=== PATIENT | female | born 1930 | race Caucasian/White ===

== ENCOUNTER 2016-12-20 10:18 | Emergency (ER) | payer MEDICARE, MEDICAID ==
[2016-12-20 11:08] LABS: Hematocrit 32.5 % (37.0-47.0); Hemoglobin 10.6 gm/dL (12.5-16.0); Mean Cell Volume 94.8 fl (78-100); Mean Corpuscular Hemoglobin 30.9 pg (27-31); Mean Corpuscular Hgb Conc 32.6 g/dl (32-36); Mean Platelet Volume 8.8 fl (6.0-9.5); Platelet Count 187 K/mm3 (150-450); Red Blood Count 3.43 M/mm3 (4.2-5.4); Red Cell Distribution Width 13.7 % (11.5-14.0); White Blood Count 7.3 K/mm3 (4.0-10.5)
[2016-12-20 11:13] LABS: Total Cells Counted 100
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
[2016-12-20 11:21] LABS: Prothrombin Time (Patient) 40.7 Seconds (9.4-11.4)
[2016-12-20 11:24] LABS: INR 3.91 INR (0.90-1.10); Partial Thrombolplastin Time 42.1 Seconds (24-32)
--- OUTSIDE RECORDS SUMMARY | 2016-12-20 11:25 | XMS REPORT | Continuity of Care Document ---
:1930 Author Organization [facility] [place] [address] Care Team Providers Name Role Phone Reddy Cervantes Primary Care Provider [phone] Source Comments This disclosure is being made pursuant to the [employer] program and maynot contain all information available regarding this patient.[facility] Active Allergies and Adverse Reactions Allergen Noted Date Severity Reactions Comments Solitario Inhibitors 04/17/2016 Cough Carvedilol 04/17/2016 Unknown Codeine 04/17/2016 High Respiratory Distress Lipitor 04/17/2016 High Swelling Penicillins 04/17/2016 High Hives Sulfa Antibiotics 04/17/2016 High Hives Vytorin 04/17/2016 Unknown Current Medications Be aware that medications may not be up to date as of this document. Alwaysverify current medications with the patient. Prescription Sig. Disp. Refills Start Date End Date Status aspirin 81 MG EC tablet Take 81 mg by Active mouth daily. torsemide (DEMADEX) 20 Take 20 mg by Active MG tablet mouth daily. omeprazole (PRILOSEC) 20 Take 20 mg by Active MG capsule mouth every morning before breakfast. potassium chloride SA Take 10 mEq by Active (K-DUR,KLOR-CON) 20 MEQ mouth daily. tablet donepezil (ARICEPT) 5 MG Take 5 mg by Active tablet mouth nightly. travoprost, Place 1 drop Active benzalkonium, (TRAVATAN into both eyes Z) 0.004 % ophthalmic nightly. solution vitamin B-12 Take 100 mcg by Active (CYANOCOBALAMIN) 100 MCG mouth daily. tablet warfarin (COUMADIN) 3 MG Take 3 mg by Active tablet mouth daily. alendronate (FOSAMAX) 70 Take 70 mg by Active MG tablet mouth every 7 days. cyclobenzaprine Take 1 tablet by 0 03/31/2016 Active (FLEXERIL) 10 MG tablet mouth 3 (three) times daily as needed. LORazepam (ATIVAN) 0.5 Take 1 tablet by 0 03/01/2016 Active MG tablet mouth daily. traMADol (ULTRAM) 50 MG Take 0.5-1 20 tablet 0 04/17/2016 Active tablet tablets by mouth every 8 (eight) hours as needed for Pain (For severe pain). calcitonin, salmon, 1 spray by Nasal 2 mL 3 04/24/2016 Active (MIACALCIN) 200 UNIT/ACT route daily. nasal spray [place] into only one nostril daily. lidocaine-prilocaine Apply up to 2 60 g 5 04/25/2016 Active (EMLA) cream affected areas twice daily prn Active Problems Problem Noted Date Closed wedge compression fracture of twelfth thoracic vertebra (HCC) 2015 Closed wedge compression fracture of seventh thoracic vertebra (HCC) 2015 Osteoporosis 04/24/2016 Closed stable burst fracture of sixth thoracic vertebra ([facility]) 04/24/2016 Closed stable burst fracture of twelfth thoracic vertebra ([facility]) 04/24/2016 Social History Tobacco Use Types Packs/Day Years Used Date Never Smoker Smokeless Tobacco: Never Used Alcohol Use Drinks/Week oz/Week Comments No Last Filed Vital Signs Vital Sign Reading Time Taken Blood Pressure 136/80 05/06/2016 9:57 AM CDT Pulse 60 04/24/2016 10:05 AM CDT Temperature 35.8 C (96.4 F) 04/24/2016 10:05 AM CDT Respiratory Rate 16 04/24/2016 10:05 AM CDT Height 1.524 m (5') 05/06/2016 9:57 AM CDT Weight 45.36 kg (100 lb) 05/06/2016 9:57 AM CDT Body Mass Index 19.53 05/06/2016 9:57 AM CDT Oxygen Saturation - - Plan of Care Health Maintenance Due Date Last Done Comments Tetanus/Pertussis (1 - Tdap) 1948 Well Adult Visit 1979 Zoster Vaccine 60+ 1989 Bone Density 1994 Pneumococcal Low/Medium Risk 65+ (1 of 2 - PCV13) 1994 Influenza Immunization (#1) 2016 Results from Last 3 Months Not on file
[2016-12-20 11:30] LABS: Eosinophil 3 % (0-3); Lymphocyte 6 % (20-51); Monocyte 1 % (0-9); Neutrophil 90 % (42-75); Neutrophil # 6.6 K/mm3 (1.3-6.0); Platelet Estimate Normal (NORMAL); RBC Morphology Normal (NORMAL)
[2016-12-20 11:41] LABS: Albumin * 3.7 gm/dl (3.4-5.0); Anion Gap 15.5 mmol/L (6.8-13.8); BUN/Creatinine Ratio 19.3 (9.0-21.6); Bilirubin, Total 1.3 mg/dL (0.0-1.1); Ca. Corrected For Albumin 8.7 mg/dL (8.4-10.2); Calcium * 8.8 mg/dL (7.9-10.9); Carbon Dioxide 26.8 mmol/L (24-32.6); Potassium 4.3 mmol/L (3.4-4.6); Total Protein 7.2 gm/dL (6.2-8.2); Troponin I 0.077 ng/ml (0.00-0.10)
[2016-12-20 12:30] LABS: Urine Bilirubin Negative (NEGATIVE); Urine Blood Negative /ul (NEGATIVE); Urine Ketone Negative (NEGATIVE); Urine Nitrite Negative (NEGATIVE); Urine Protein Negative (NEGATIVE); Urine Specific Gravity 1.025 SP.GR. (1.005-1.010); Urine Urobilinogen Normal (NORMAL); Urine pH 5.5 pH (5.0-7.0)
[2016-12-20 12:47] LABS: Urine Appearance Slightly Cloudy; Urine Bacteria 1+; Urine Color Yellow; Urine RBC None Seen /hpf (0-5); Urine WBC TRACE /hpf (0-5)
[2016-12-20] MEDS ORDERED: ACETAMINOPHEN 325 MG TABLET ONE (13:21)
[2016-12-20] MEDS ORDERED: ACETAMINOPHEN 325 MG TABLET PO ONE (13:21)
[2016-12-20 13:27] VITALS: BP 127/77
== END 2016-12-20 13:40 | disposition home or self-care (01) ==
LOC: ER 10:18
PROC: 0T9B7ZZ Drainage of Bladder, Via Natural or Artificial Opening (ICD-10-PCS; principal; 2016-12-20)
DX: D68.59 Other primary thrombophilia (principal); S22.41XA Multiple fractures of ribs, right side, initial encounter for closed fracture; W01.198A Fall on same level from slipping, tripping and stumbling with subsequent striking against other object, initial encounter; Z79.01 Long term (current) use of anticoagulants; I50.9 Heart failure, unspecified; Z86.718 Personal history of other venous thrombosis and embolism; H40.9 Unspecified glaucoma; I10 Essential (primary) hypertension

== ENCOUNTER 2017-08-10 11:05 | Emergency (ER) | payer MEDICARE, MEDICAID ==
--- NOTE | 2017-08-10 11:47 | ERNOTE ---
Back Pain ER HPI Presenting Symptoms: other - patient complains of lower thoracic pain along the ribs a wrap around to the front Time Seen by Provider: 08/10/17 11:30 Source: patient, family Exam Limitations: no limitations - other than profound hearing disability, hard of hearing Immunizations: IMMUNIZATION HX Immunizations Up to Date Yes History of Influenza Vaccine Yes Hx Pneumococcal Vaccination Yes Allergies/Adverse Reactions: Allergies BRENDA Inhibitors Allergy (Verified 12/20/16 10:42) atorvastatin calcium [From Lipitor] Allergy (Verified 12/20/16 10:42) carvedilol Allergy (Verified 12/20/16 10:42) ezetimibe [From Vytorin] Allergy (Verified 12/20/16 10:42) simvastatin [From Vytorin] Allergy (Verified 12/20/16 10:42) Sulfa (Sulfonamide Antibiotics) Allergy (Verified 12/20/16 10:42) hydrocodone Adverse Reaction (Verified 12/20/16 10:42) Home Medications: HOME MEDICATIONS Alendronate Sodium [Fosamax] 70 mg PO Q7D 06/10/14 [Last Taken 06/09/14] Donepezil HCl [Aricept] 5 mg PO DAILY 06/10/14 [Last Taken 06/09/14] Torsemide [Demadex] 100 mg PO DAILY 06/10/14 [Last Taken 06/09/14] Travoprost [Travatan Z] 2.5 ml OP DAILY 06/10/14 [Last Taken 06/09/14] LORazepam [Ativan] 0.5 mg PO DAILY PRN 03/28/16 [Last Taken Unknown] Omeprazole [Prilosec] 20 mg PO DAILY 03/28/16 [Last Taken Unknown] Potassium Chloride [Klor-Con M10] 10 meq PO DAILY 03/28/16 [Last Taken Unknown] Cyanocobalamin (Vitamin B-12) [Vitamin B12] 1,000 mcg IM DAILY 12/20/16 [Last Taken Unknown] Naproxen [Naprosyn] 375 mg PO DAILY #30 tablet 08/10/17 [Last Taken Unknown] Probenecid/Colchicine [Probenecid-Colchicine Tabs] 1 tab PO BID 08/10/17 [Last Taken Unknown] Narrative: Patient complains of 2 days of back pain in the lower thoracic area that wraps around to the front of the chest as well as having some tenderness in the suprapubic region Timing: Reports: constant Quality/Severity: Reports: moderate Location of pain: Reports: mid back, other - radiates along the rib cage to the front Activities at Onset: Reports: none Recent Injury?: Reports: no Modifying Factors - (Improves): Reports: nothing Modifying Factors - (Worsens): Reports: nothing Associated Symptoms: Reports: sweating - questionable sweating Review of Systems - Review of Systems Constitutional: Present: See HPI EYE: Present: no symptoms reported ENT: Present: no symptoms reported Respiratory: Present: no symptoms reported Cardiology: Present: chest pain - appears to be more chest wall Gastrointestinal/Abdominal: Present: no symptoms reported Genitourinary: Present: no symptoms reported Musculoskeletal: Present: back pain - appears to be more lower thoracic in origin Skin: Present: no symptoms reported Neurological: Present: no symptoms reported Endocrine: Present: no symptoms reported Hematologic/Lymphatic: Present: no symptoms reported Psych: Present: no symptoms reported - Patient's Past Medical History Patient History - Medical: Anemia, Glaucoma, Hypothyroidism, Osteoarthritis Patient History - Cardiac/Respiratory: CHF, Deep Vein Thrombosis, Hypertension, Other Patient History - Cancer: No Hx of Cancer Patient History - Surgical Procedures: Appendectomy, Cholecystectomy, Hysterectomy, Total Knee Replacement, T & A Patient History - Other: None LMP (females 10-50): Menopausal - Family History Mother Family History - Medical: - Social History Living Situations: home Abuse History: No History of abuse Psych History: No pertinent hx Smoking Status: Never smoker Alcohol Use: none Drug Use: none - Immunizations Immunizations Up to Date: Yes Hx Pneumococcal Vaccination: Yes History of Influenza Vaccine: Yes Physical Exam - Physical Exam General Appearance: Present: wd/wn, alert, moderate distress Head Exam: Present: normal inspection Eye Exam: Normal inspection: bilateral, PERRL: bilateral Ears, Nose, Throat: Present: normal ENT inspection, H, normal pharynx Neck: Present: normal inspection, nontender Respiratory: Present: no respiratory distress, normal breath sounds, no accessory muscle use, lungs clear, chest tenderness - chest tenderness appears to be along the thoracic cage lower bilaterally Cardiovascular/Chest: Present: regular rate, rhythm, no murmur, normal peripheral pulses Gastrointestinal/Abdominal: Present: normal bowel sounds, nondistended, soft, no organomegaly, tenderness - appears to be some tenderness suprapubic Rectal Exam: Present: deferred Back Exam: Present: normal inspection, normal range of motion Extremity Exam: Present: normal inspection, non-tender, no edema, normal range of motion Neurological Exam: Present: alert, oriented, normal mood/affect Skin Exam: Present: normal color, warm/dry Lymphatic Exam: Present: no adenopathy ED Progress - Results and Orders Patient's Lab Results:: I have reviewed the patient's lab results. - Vital Signs Patient's Vital Signs:: I have reviewed the patient's vital signs. Vital Signs: Vital Signs 08/10/17 11:09 Temperature 36.4 C L Pulse Rate 88 Respiratory 18 Rate Blood Pressure 119/74 O2 Sat by Pulse 98 Oximetry - EKG EKG: NSR EKG read: Interp. by me - X-Ray X-Ray #1 X-Ray: chest Interpretation: Reviewed by me - Progress/Reassessment Chief Complaint: Back Pain Plan - Plan Plan: It is unclear how much actual pain she has or whether the dementia is driving the overall process. She might have exacerbated her old compression fracture at T12 and that could be the source of the pain is at his exactly where she is having pain. Any strong pain medicine only makes her confusion worse so we will try her on Naprosyn 250 mg she will follow-up with her family physician in a week to 10 days Departure Clinical Impression: Fracture, thoracic vertebra, compression Qualifiers: Encounter type: initial encounter Fracture type: closed Qualified Code(s): S22.000A - Wedge compression fracture of unspecified thoracic vertebra, initial encounter for closed fracture Back pain Qualifiers: Back pain location: low back pain Chronicity: chronic Back pain laterality: unspecified Sciatica presence: without sciatica Qualified Code(s): M54.5 - Low back pain; G89.29 - Other chronic pain; G89.29 - Other chronic pain - Departure Disposition: Home self-care Condition: Good Instructions: Back Pain, Adult, Spinal Compression Fracture Referrals: Reddy Cervantes DO [Primary Care Provider] - Prescriptions: Naproxen [Naprosyn] 375 mg PO DAILY #30 tablet
[2017-08-10 11:51] LABS: Hematocrit 32.7 % (37.0-47.0); Hemoglobin 10.9 gm/dL (12.5-16.0); Mean Corpuscular Hemoglobin 33.3 pg (27-31); Mean Corpuscular Hgb Conc 33.3 g/dl (32-36); Mean Platelet Volume 9.1 fl (6.0-9.5); Neutrophil # 3.5 K/mm3 (1.3-6.0); Neutrophil % 67.4 % (42-75.0); Platelet Count 218 K/mm3 (150-450); Red Blood Count 3.27 M/mm3 (4.2-5.4); White Blood Count 5.2 K/mm3 (4.0-10.5)
[2017-08-10 12:12] LABS: ALT 9 U/L (19-67); AST 22 U/L (0-48); Albumin * 3.7 gm/dl (3.4-5.0); Alkaline Phosphatase * 97 U/L (50-170); Anion Gap 15.2 mmol/L (6.8-13.8); BUN/Creatinine Ratio 18.5 (9.0-21.6); Bilirubin, Total 0.3 mg/dL (0.0-1.1); Blood Urea Nitrogen 24 mg/dL (3-23); Ca. Corrected For Albumin 9.4 mg/dL (8.4-10.2); Calcium * 9.5 mg/dL (7.9-10.9); Carbon Dioxide 25.7 mmol/L (24-32.6); Chloride 106 mmol/L (97-106); Glucose * 97 mg/dL (70-110); Lipase 169 U/L (73-393); Magnesium 2.1 mg/dL (1.2-2.8); Potassium 4.9 mmol/L (3.4-4.6); Sodium 142 mmol/L (132-142); Total Protein 7.3 gm/dL (6.2-8.2); Troponin I Less than 0.017 ng/ml (0.00-0.10)
[2017-08-10 12:27] LABS: Urine Bilirubin Negative (NEGATIVE); Urine Blood Negative /ul (NEGATIVE); Urine Ketone Negative (NEGATIVE); Urine Nitrite Negative (NEGATIVE); Urine Protein Negative (NEGATIVE); Urine Specific Gravity 1.015 SP.GR. (1.005-1.010); Urine Urobilinogen Normal (NORMAL)
[2017-08-10 12:44] LABS: Urine Appearance Clear; Urine Bacteria TRACE; Urine Color Yellow; Urine RBC None Seen /hpf (0-5); Urine WBC 0-5 /hpf (0-5)
[2017-08-10 13:05] VITALS: BP 119/69
== END 2017-08-10 13:09 | disposition home or self-care (01) ==
LOC: ER 11:05
PROC: 0T9B7ZZ Drainage of Bladder, Via Natural or Artificial Opening (ICD-10-PCS; principal; 2017-08-10)
DX: S22.000A Wedge compression fracture of unspecified thoracic vertebra, initial encounter for closed fracture (principal); M54.5 Low back pain; G89.29 Other chronic pain; D64.9 Anemia, unspecified; E03.9 Hypothyroidism, unspecified; M19.90 Unspecified osteoarthritis, unspecified site; I50.9 Heart failure, unspecified; I10 Essential (primary) hypertension

== ENCOUNTER 2017-11-17 22:34 | Inpatient (IN) | payer MEDICARE, MEDICAID ==
--- NOTE | 2017-11-17 22:55 | ERNOTE ---
Medical Problem HPI - General Chief Complaint: General Assessment Time Seen by Provider: 11/17/17 22:47 Source: patient, family Exam Limitations: no limitations - Immun/Allergies/Home Medications Immunizations: IMMUNIZATION HX Immunizations Up to Date Yes History of Influenza Vaccine Yes Hx Pneumococcal Vaccination Yes Allergies/Adverse Reactions: Allergies BRENDA Inhibitors Allergy (Verified 11/17/17 22:42) atorvastatin calcium [From Lipitor] Allergy (Verified 11/17/17 22:42) carvedilol Allergy (Verified 11/17/17 22:42) ezetimibe [From Vytorin] Allergy (Verified 11/17/17 22:42) simvastatin [From Vytorin] Allergy (Verified 11/17/17 22:42) Sulfa (Sulfonamide Antibiotics) Allergy (Verified 11/17/17 22:42) hydrocodone Adverse Reaction (Verified 11/17/17 22:42) Home Medications: HOME MEDICATIONS Donepezil HCl [Aricept] 5 mg PO DAILY 06/10/14 [Last Taken 06/09/14] Torsemide [Demadex] 100 mg PO DAILY 06/10/14 [Last Taken 06/09/14] Travoprost [Travatan Z] 1 drop OP DAILY 06/10/14 [Last Taken 06/09/14] LORazepam [Ativan] 0.5 mg PO DAILY PRN 03/28/16 [Last Taken Unknown] Omeprazole [Prilosec] 20 mg PO DAILY 03/28/16 [Last Taken Unknown] Potassium Chloride [Klor-Con M10] 10 meq PO DAILY 03/28/16 [Last Taken Unknown] Probenecid/Colchicine [Probenecid-Colchicine Tabs] 1 tab PO BID 08/10/17 [Last Taken Unknown] Alendronate Sodium [Fosamax] 70 mg PO .WEEKLY 11/18/17 [Last Taken 11/17/17 09: 00] Cyanocobalamin [Vitamin B-12] 1,000 mcg IJ .MONTHLY 11/18/17 [Last Taken 09:00] - History of Present History Narrative: Pt has had n/v for 3 days. She was seen in [facility] earlier today by Dr. Vazquez and found elevated BUN / Cr, they do not have room for her there as asked if we would admit. I spoke with Chandler BROWNP hospitalist and she discussed the case with the attending Dr. Gomez. Chandler also Spoke with Dr. Vazquez at [facility] and they agreed to accept the patient. Timing: constant Severity: moderate Review of Systems - Review of Systems Constitutional: Present: recent illness Gastrointestinal/Abdominal: Present: nausea, vomiting, diarrhea - Patient's Past Medical History Patient History - Medical: Anemia, Glaucoma, Hypothyroidism, Osteoarthritis Patient History - Cardiac/Respiratory: CHF, Deep Vein Thrombosis, Hypertension, Other Patient History - Cancer: No Hx of Cancer Patient History - Surgical Procedures: Appendectomy, Cholecystectomy, Hysterectomy, Total Knee Replacement, T & A Patient History - Other: None LMP (females 10-50): Menopausal - Family History Mother Family History - Medical: Father Family History - Medical: - Social History Living Situations: assisted living Abuse History: No History of abuse Psych History: No pertinent hx Smoking Status: Never smoker Have you smoked in the past 12 months: No Do you dip or chew tobacco: No Alcohol Use: none Drug Use: none - Immunizations Immunizations Up to Date: Yes Hx Pneumococcal Vaccination: Yes History of Influenza Vaccine: Yes Physical Exam - Physical Exam General Appearance: Present: wd/wn, alert, no apparent distress Head Exam: Present: normal inspection, no evidence of injury Ears, Nose, Throat: Present: normal ENT inspection Neck: Present: normal inspection, nontender, supple Respiratory: Present: no respiratory distress, normal breath sounds, no accessory muscle use, lungs clear Cardiovascular/Chest: Present: regular rate, rhythm, no murmur Gastrointestinal/Abdominal: Present: nondistended, soft, tenderness - diffuse. Absent: guarding, rebound Back Exam: Present: normal inspection, normal range of motion Extremity Exam: Present: normal inspection, normal range of motion, no edema Neurological Exam: Present: alert, oriented, normal mood/affect Skin Exam: Present: normal color, warm/dry Lymphatic Exam: Present: no adenopathy ED Progress - Vital Signs Vital Signs: Vital Signs 11/17/17 22:36 Temperature 37 C Pulse Rate 101 H Respiratory 14 Rate Blood Pressure 99/61 O2 Sat by Pulse 97 Oximetry - CT/Ultrasound CT/Ultrasound Narrative: abd x-ray report from [facility] suggested obstruction and a left inguinal hernia abdomen CT from [facility] did not show obstruction or hernia, findings suggestive of enteritis - Progress/Reassessment Chief Complaint: General Assessment Departure Clinical Impression: Gastroenteritis, Dehydration CRF (chronic renal failure) Qualifiers: Chronic kidney disease stage: stage 5 Qualified Code(s): N18.5 - Chronic kidney disease, stage 5 - Departure Disposition: Short Term Hospital Inpatient Condition: Good
--- NOTE | 2017-11-17 23:34 | HP ---
Chief Complaint - Chief Complaint Date of Service: 11/17/17 Time of Service: 23:34 Chief Complaint: Diarrhea, vomiting and nausea History of Present Illness: 87 years old white female adm to the hospital as a transfer from [facility] with reports of nausea, vomiting and diarrhea x5 days. PMH significant for CHF, hypertension, dehydration, CRF stage 4,dementia, hypothyroidism and anemia secondary to B12 deficiency. Per daughter pt was having excessive diarrhea and vomiting today so she took her to PCP. she was later admitted to [facility], due to unavailable beds she was transfer to [facility]. 2 weeks ago she was placed at [facility]; due to inability to care for herself and frequent falls. Since then pt have report decreased appetite and lost 9lb, Pt stated he last bowel movements were this morning and she haven' t had much to eat or drink. Outside facility records: Bun/ Cre 104/3.1, GFR 15.1 , her previous records April 17/2017 Bun/Cre 38/1.7 GFR 30.2. X-ray Abdomen: There are multiple dilated loops of bowels and a large inguinal hernia containing bowel. Findings worrisome for bowel obstruction. CT Abdomen: ileus vs gastroenteritis. A discrete obstruction or abscess is not identified. inguinal hernia not seen on CT. Plan of care discussed with pt and family they verbalized understanding and agrees. - Patient's Past Medical History Patient History - Medical: Anemia, Glaucoma, Hypothyroidism, Osteoarthritis, Osteoporosis, Other - pelvic fracture Patient History - Cardiac/Respiratory: CHF, Deep Vein Thrombosis, Hypertension, Other - pulmonary fibrosis Patient History - Cancer: No Hx of Cancer Patient History - Surgical Procedures: Appendectomy, Cholecystectomy, Hysterectomy, Total Knee Replacement - right, T & A Patient History - Other: None LMP (females 10-50): Menopausal - Family History Mother Family History - Medical: Father Family History - Medical: - Social History Living Situations: [facility] - [facility] Abuse History: No History of abuse Psych History: No pertinent hx Smoking Status: Never smoker Have you smoked in the past 12 months: No Do you dip or chew tobacco: No Alcohol Use: none Drug Use: none - Immunizations Immunizations Up to Date: Yes Hx Pneumococcal Vaccination: Yes History of Influenza Vaccine: Yes Review Of Systems (GEN) - Review of Systems Generalized/Overall Review: Present: Weight loss - 9lb in 2 weeks EENTM: Present: No Symptoms Reported Respiratory: Present: No Symptoms Reported Cardiac: Present: No Symptoms Reported Abdominal: Present: Nausea, Vomiting, Diarrhea Genitourinary: Present: No Symptoms Reported Musculoskeletal: Present: No Symptoms Reported Neurological: Present: Weakness Skin: Present: Other - Stage II sacrum Endocrine: Present: No Symptoms Reported Allergies/Adverse Reactions: Allergies Allergy/AdvReac Type Severity Reaction Status Date / Time BRENDA Inhibitors Allergy Verified 11/17/17 22:42 atorvastatin calcium Allergy Verified 11/17/17 22:42 [From Lipitor] carvedilol Allergy Verified 11/17/17 22:42 ezetimibe [From Vytorin] Allergy Verified 11/17/17 22:42 simvastatin [From Vytorin] Allergy Verified 11/17/17 22:42 Sulfa (Sulfonamide Allergy Verified 11/17/17 22:42 Antibiotics) hydrocodone AdvReac Verified 11/17/17 22:42 Home Medications: HOME MEDICATIONS Alendronate Sodium [Fosamax] 70 mg PO Q7D 06/10/14 [Last Taken 06/09/14] Donepezil HCl [Aricept] 5 mg PO DAILY 06/10/14 [Last Taken 06/09/14] Torsemide [Demadex] 100 mg PO DAILY 06/10/14 [Last Taken 06/09/14] Travoprost [Travatan Z] 1 drop OP DAILY 06/10/14 [Last Taken 06/09/14] LORazepam [Ativan] 0.5 mg PO DAILY PRN 03/28/16 [Last Taken Unknown] Omeprazole [Prilosec] 20 mg PO DAILY 03/28/16 [Last Taken Unknown] Potassium Chloride [Klor-Con M10] 10 meq PO DAILY 03/28/16 [Last Taken Unknown] Cyanocobalamin (Vitamin B-12) [Vitamin B12] 1,000 mcg IM DAILY 12/20/16 [Last Taken Unknown] Probenecid/Colchicine [Probenecid-Colchicine Tabs] 1 tab PO BID 08/10/17 [Last Taken Unknown] Exam - Exam Vital Signs: Vital Signs - Last Taken Temp 37 C 11/17/17 22:36 Pulse 104 H 11/17/17 23:07 Resp 16 11/17/17 23:07 BP 97/70 02/19/18 23:07 Pulse Ox 97 11/17/17 23:07 Constitutional: Present: Alert, Oriented x3, Cooperative, No distress, Elderly, Thin and frail ENT Exam: Present: hard of hearing Eye Exam: bilateral eye: normal inspection Neck: Present: full range of motion Back Exam: Present: normal inspection Breasts: Present: Exam deferred Respiratory: Present: chest non-tender, lungs clear, normal breath sounds, no respiratory distress Cardiovascular/Chest: Present: normal peripheral pulses, regular rate, rhythm, no chest tenderness, no edema Peripheral Pulses: dorsalis-pedis (R): 3+, dorsalis-pedis (L): 3+ Abdomen: Present: Normal bowel sounds, soft, nontender, nondistended, no rebound tenderness /Rectal: Present: Exam deferred Extremity: Present: normal range of motion, non-tender, normal inspection, no pedal edema Skin Exam: Present: warm/dry, other - stage II sacrum Neurologic: Present: alert, oriented x 3 Appearance: Present: appropriate appearance, impaired remote memory Eye contact: Present: cooperative, good eye contact Thoughts: Present: normal thought pattern, no apparent hallucination Diagnostic Studies: X-ray Abdomen: There are multiple dilated loops of bowels and a large inguinal hernia containing bowel. Findings worrisome for bowel obstruction. CT Abdomen: ileus vs gastroenteritis. A discrete obstruction or abscess is not identified. inguinal hernia not seen on CT. Assessment/Plan - Narrative Narrative: Acute on chronic renal failure stage 4-5- Secondary to poor oral intake, vomiting and diarrhea x5 days Outside facility records: Bun/ Cre 104/3.1, GFR 15.1, her previous records April 17/2017 Bun/Cre 38/1.7 GFR 30.2 1L NS bolus given Will contiue with gently hydration Monitor strict I/O weight daily Avoid nephrotoxic agents and NSAIDs Diarrhea and vomiting x 5days Pt report 9lb weight lost and poor appetite Add Megace QID Antiemetic PRN Clear liquid diet and ensure with each meals. Encourage oral intake Stool culture pending Thrombocytosis- likely due to dehydration vs history of anemia outside facility plt [phone] potentially will improve with IVF hydration Dehydration Plan same as #1 Chronic conditions- stable Continue to monitor CHF Hypothyridism Hypertension Anemia Dementia Code status: DNR GI ppx: Protonix VTE ppx: Heparin SC Time 45 minutes and case discussed with Dr Gomez - Assessment/Plan (1) Dehydration Problem: Acute (2) CRF (chronic renal failure) Problem: Acute Qualifiers: Chronic kidney disease stage: stage 5 Qualified Code(s): N18.5 - Chronic kidney disease, stage 5 (3) Dementia Problem: Chronic (4) Hypothyroidism Problem: Chronic (5) CHF (congestive heart failure) Problem: Chronic (6) Hypertension Problem: Chronic (7) Anemia, B12 deficiency Problem: Chronic
[2017-11-17] MEDS ORDERED: METOCLOPRAMIDE HCL 5 MG/ML VIAL IV PRN (23:38)
[2017-11-17] MEDS ORDERED: NORMAL SALINE 1,000 ML IV PRN (23:39)
[2017-11-17] MEDS ORDERED: PANTOPRAZOLE SODIUM 40 MG in NORMAL SALINE 100 ML IV SCH (23:45)
[2017-11-18] MEDS: HEPARIN SODIUM,PORCINE 5,000 UNITS/ML VIAL SC SCH ×3 (00:51→23:50)
[2017-11-18] MEDS ORDERED: LORazepam 0.5 MG TABLET PO PRN (01:09)
[2017-11-18] MEDS ORDERED: LOPERAMIDE HCL 2 MG CAPSULE PO PRN (04:36)
[2017-11-18 05:39] LABS: Hematocrit 28.6 % (37.0-47.0); Hemoglobin 9.7 gm/dL (12.5-16.0); Mean Corpuscular Hemoglobin 32.6 pg (27-31); Mean Corpuscular Hgb Conc 33.9 g/dl (32-36); Mean Platelet Volume 9.1 fl (6.0-9.5); Platelet Count 310 K/mm3 (150-450); Red Blood Count 2.98 M/mm3 (4.2-5.4); Red Cell Distribution Width 13.6 % (11.5-14.0); White Blood Count 7.6 K/mm3 (4.0-10.5)
[2017-11-18 05:53] LABS: Total Cells Counted 100
[2017-11-18 06:02] LABS: Anion Gap 17.7 mmol/L (6.8-13.8); BUN/Creatinine Ratio 37.7 (9.0-21.6); Bilirubin, Total 0.4 mg/dL (0.0-1.1); Ca. Corrected For Albumin 8.6 mg/dL (8.4-10.2); Calcium * 8.1 mg/dL (7.9-10.9); Carbon Dioxide 22.2 mmol/L (24-32.6); Potassium 2.9 mmol/L (3.4-4.6); Total Protein 6.1 gm/dL (6.2-8.2)
[2017-11-18 06:10] LABS: Immature Granulocyte 6 (0-1); Lymphocyte 5 % (20-51); Monocyte 3 % (0-9); Neutrophil 86 % (42-75); Neutrophil # 6.5 K/mm3 (1.3-6.0); Platelet Estimate Normal (NORMAL); RBC Morphology Normal (NORMAL)
--- NOTE | 2017-11-18 06:30 | PN ---
Subjective - Date and Time Seen Date: 11/18/17 Time: 06:20 Subjective Narrative: patient seen today no acute distress, pt stated she is feeling good., she had loose stool overnight but no nausea or vomiting. Objective - Review of Systems Generalized/Overall Review: Reports: No Symptoms Reported EENTM: Reports: No Symptoms Reported Respiratory: Reports: No Symptoms Reported Cardiac: Reports: No Symptoms Reported Abdominal: Reports: No Symptoms Reported Genitourinary Symptoms: Reports: No Symptoms Reported Musculoskeletal Complaints: Reports: No Symptoms Reported Neurological: Reports: No Symptoms Reported Skin: Reports: No Symptoms Reported Endocrine: Reports: No Symptoms Reported - Vitals Vitals: Last Vital Signs Temp 36.4 C L 11/18/17 02:26 Pulse 92 11/18/17 02:26 Resp 18 11/18/17 02:26 BP 96/55 11/18/17 02:26 Pulse Ox 98 11/18/17 02:26 - Abnormal Lab Findings Abnormal Lab Findings: Abnormal Lab Results 11/18/17 11/18/17 Range/Units 05:34 05:34 RBC 2.98 L (4.2-5.4) M/mm3 Hgb 9.7 L (12.5-16.0) gm/dL Hct 28.6 L (37.0-47.0) % MCH 32.6 H (27-31) pg Neutrophils % (Manual) 86 H (42-75) % Lymphocytes % (Manual) 5 L (20-51) % Immature Granulocytes 6 H (0-1) Neutrophils # (Manual) 6.5 H (1.3-6.0) K/mm3 Lymphocytes # (Manual) 0.4 L (1.5-3.5) k/mm3 Potassium 2.9 L D (3.4-4.6) mmol/L Carbon Dioxide 22.2 L (24-32.6) mmol/L Anion Gap 17.7 H (6.8-13.8) mmol/L BUN 98 H D (3-23) mg/dL Creatinine 2.60 H D (0.4-1.4) mg/dL Est GFR (Non-Af Amer) 18 L D (60-130) mL/min BUN/Creatinine Ratio 37.7 H (9.0-21.6) Random Glucose 69 L (70-110) mg/dL ALT 17 L (19-67) U/L Alkaline Phosphatase 205 H (50-170) U/L B-Natriuretic Peptide 1857 H (5-550) pg/mL Total Protein 6.1 L (6.2-8.2) gm/dL Albumin 3.0 L (3.4-5.0) gm/dl - Exam Constitutional: Present: Alert, Oriented x3, Cooperative, No distress, Elderly, Thin and frail ENT Exam: Present: hard of hearing Neck: Present: full range of motion Respiratory: Present: chest non-tender, normal breath sounds, no respiratory distress, decreased breath sounds Cardiovascular/Chest: Present: normal peripheral pulses, regular rate, rhythm, no chest tenderness, no edema, systolic murmur Abdomen: Present: Normal bowel sounds, soft, nontender, nondistended, no rebound tenderness Extremity: Present: normal range of motion, non-tender, normal inspection, no calf tenderness Skin Exam: Present: other - sacral wound Neurologic: Present: oriented x 3 Appearance: Present: appropriate appearance, appropriate insight Eye contact: Present: cooperative, good eye contact Thoughts: Present: normal thought pattern Assessment/Plan Plan Narrative: Acute on chronic renal failure stage 4-5- Secondary to poor oral intake, vomiting and diarrhea x5 days Outside facility records: Bun/ Cre 104/3.1, GFR 15.1, her previous records April 17/2017 Bun/Cre 38/1.7 GFR 30.2 11/18/17 Repeated Bun/cre 98/2.60 GFR 18 1L NS bolus given and she had maintain fluid NS 80ml/hr. Switched fluid with added potassium Continue to Monitor strict I/O weight daily Avoid nephrotoxic agents and NSAIDs Hypokalemia K+ 2.9 1L NS bolus given and she had maintain fluid NS 80ml/hr. Switched fluid with added potassium Give schedule dose of K-dur 10meq Monitor CMP Diarrhea and vomiting x 5days Pt report 9lb weight lost and poor appetite Add Megace QID Antiemetic PRN Clear liquid diet and ensure with each meals. Encourage oral intake C-diff negative,may remove off isolation Stool culture pending Dehydration Continue with same plan as #1 Chronic conditions- stable Continue to monitor CHF-BNP >1800 Hypothyridism Hypertension Anemia Dementia sacral wound Wound care clean with soap and water Apply meplex Thrombocytosis- likely due to dehydration - resolved outside facility plt [phone] potentially will improve with IVF hydration Code status: DNR GI ppx: Protonix VTE ppx: Heparin SC Time 20 minutes and case discussed with Dr Gomez - Problems/Diagnosis (1) Dehydration Problem: Acute (2) CRF (chronic renal failure) Problem: Acute Qualifiers: Chronic kidney disease stage: stage 5 Qualified Code(s): N18.5 - Chronic kidney disease, stage 5 (3) Dementia Problem: Chronic (4) Hypothyroidism Problem: Chronic (5) CHF (congestive heart failure) Problem: Chronic (6) Hypertension Problem: Chronic (7) Anemia, B12 deficiency Problem: Chronic
[2017-11-18] MEDS: POTASSIUM CHLORIDE 20 MEQ in NORMAL SALINE 1,000 ML IV SCH ×2 (09:57→23:13)
[2017-11-18] MEDS: MEGESTROL ACETATE 40 MG TABLET PO SCH ×4 (10:00→20:27)
[2017-11-18] MEDS: POTASSIUM CHLORIDE 10 MEQ TABLET.SA PO SCH (10:00)
[2017-11-18] MEDS: DONEPEZIL HCL 5 MG TABLET PO SCH (10:00)
[2017-11-18 12:17] LABS: Anion Gap 16.5 mmol/L (6.8-13.8); BUN/Creatinine Ratio 38.2 (9.0-21.6); Calcium * 8.5 mg/dL (7.9-10.9); Carbon Dioxide 19.7 mmol/L (24-32.6); Estimated Creat Clear 9.1; Potassium 3.2 mmol/L (3.4-4.6)
[2017-11-18] MEDS: TRAVOPROST 25 DROP BTL OP SCH (20:28)
[2017-11-18] MEDS ORDERED: PANTOPRAZOLE SODIUM 40 MG in NORMAL SALINE 50 ML IV SCH (23:45)
[2017-11-19 05:59] LABS: Albumin * 2.6 gm/dl (3.4-5.0); Anion Gap 18.1 mmol/L (6.8-13.8); BUN/Creatinine Ratio 42.5 (9.0-21.6); Bilirubin, Total 0.2 mg/dL (0.0-1.1); Calcium * 8.2 mg/dL (7.9-10.9); Carbon Dioxide 18.7 mmol/L (24-32.6); Potassium 3.8 mmol/L (3.4-4.6); Total Protein 5.2 gm/dL (6.2-8.2)
[2017-11-19] MEDS: POTASSIUM CHLORIDE 20 MEQ in NORMAL SALINE 1,000 ML IV SCH (09:10)
[2017-11-19] MEDS: POTASSIUM CHLORIDE 10 MEQ TABLET.SA PO SCH (09:11)
[2017-11-19] MEDS: MEGESTROL ACETATE 40 MG TABLET PO SCH ×4 (09:11→21:10)
[2017-11-19] MEDS: SACCHAROMYCES BOULARDII 250 MG CAPSULE PO SCH ×3 (09:11→21:10)
[2017-11-19] MEDS: DONEPEZIL HCL 5 MG TABLET PO SCH (09:11)
--- NOTE | 2017-11-19 10:31 | PN ---
Subjective - Date and Time Seen Date: 11/19/17 Time: 10:21 Subjective Narrative: Krysta reports getting up multiple times for diarrhea. No nausea or vomiting. No fever or chills. Objective - Vitals Vitals: Last Vital Signs Temp 36.6 C 11/19/17 09:21 Pulse 86 11/19/17 09:21 Resp 18 11/19/17 09:21 BP 128/76 11/19/17 09:21 Pulse Ox 95 11/19/17 09:21 - Abnormal Lab Findings Abnormal Lab Findings: Abnormal Lab Results 11/18/17 11/19/17 Range/Units 12:05 05:35 Potassium 3.2 L (3.4-4.6) mmol/L Chloride 109 H (97-106) mmol/L Carbon Dioxide 19.7 L 18.7 L (24-32.6) mmol/L Anion Gap 16.5 H 18.1 H (6.8-13.8) mmol/L BUN 94 H 77 H (3-23) mg/dL Creatinine 2.46 H 1.81 H D (0.4-1.4) mg/dL Est GFR (Non-Af Amer) 20 L 28 L D (60-130) mL/min BUN/Creatinine Ratio 38.2 H 42.5 H (9.0-21.6) Random Glucose 130 H D (70-110) mg/dL ALT 16 L (19-67) U/L Alkaline Phosphatase 179 H (50-170) U/L Total Protein 5.2 L (6.2-8.2) gm/dL Albumin 2.6 L (3.4-5.0) gm/dl - Exam Constitutional: Present: Alert, Oriented x3, Cooperative ENT Exam: Present: hearing grossly normal Respiratory: Present: lungs clear, normal breath sounds Cardiovascular/Chest: Present: regular rate, rhythm, no murmur Abdomen: Present: Normal bowel sounds, soft, nontender, nondistended Skin Exam: Present: normal color, warm/dry, no cyanosis Assessment/Plan - Problems/Diagnosis (1) Acute renal failure superimposed on stage 3 chronic kidney disease Problem: Acute Narrative: Acute renal failure returned to baseline with fluids. However patient is still having diarrhea. She no longer has vomiting. She appears to have good appetite. Will discontinue IVFs today and have her eat and drink a regular diet. Will monitor renal function and monitor stools. Culture and c dif are negative. Will add probiotic twice a day to help stop diarrhea. If renal function is stable today may consider home discharge tomorrow.
[2017-11-19] MEDS: HEPARIN SODIUM,PORCINE 5,000 UNITS/ML VIAL SC SCH ×2 (12:39→23:14)
[2017-11-19] MEDS: TRAVOPROST 25 DROP BTL OP SCH (21:10)
[2017-11-20 06:55] LABS: Anion Gap 13.4 mmol/L (6.8-13.8); BUN/Creatinine Ratio 49.2 (9.0-21.6); Bilirubin, Total 0.3 mg/dL (0.0-1.1); Ca. Corrected For Albumin 9.7 mg/dL (8.4-10.2); Calcium * 9.2 mg/dL (7.9-10.9); Carbon Dioxide 23.8 mmol/L (24-32.6); Potassium 4.2 mmol/L (3.4-4.6); Total Protein 6.2 gm/dL (6.2-8.2)
[2017-11-20] MEDS: POTASSIUM CHLORIDE 10 MEQ TABLET.SA PO SCH (08:06)
[2017-11-20] MEDS: DONEPEZIL HCL 5 MG TABLET PO SCH (08:06)
[2017-11-20] MEDS: MEGESTROL ACETATE 40 MG TABLET PO SCH ×4 (08:06→20:39)
[2017-11-20] MEDS: SACCHAROMYCES BOULARDII 250 MG CAPSULE PO SCH ×2 (08:07→20:39)
--- NOTE | 2017-11-20 10:25 | DS ---
(1) Acute on chronic diastolic CHF (congestive heart failure) Problem: Acute (2) Acute renal failure superimposed on stage 3 chronic kidney disease Problem: Resolved Description of Stay: Krysta was anticipated to be discharged today with resolved renal failure. However prior to leaving she began feeling short of breath. She was re- evaluated and had mild respiratory distress, was alert and oriented x 3, heart regular rate and rhythm without murmur, lungs with rales in bilateral bases. extremities with no edema, no hypoxia. She had been hydrated due to acute on chronic renal failure with gentle hydration, but it still appeared she was mildly hypervolumized. We will cancel discharge for today and give lasix. Will recheck tomorrow. Procedures Performed: none Discharge Disposition: Discharge was cancelled Disposition: Still a patient Condition: Fair Referrals: Benedict Gomez DO [Staff Physician] - (Friday or Friday next week, ok for friday morning if no other available spots) Problem Oriented Discharge Instructions to Patient/Family: Acute Kidney Injury , Viral Gastroenteritis, Adult, [id number] Additional Patient Instructions (free text): -Please make TCM appointment unless halfway discharge. Thank you! Dolores @ [phone]. Follow up with Dr. Gomez on 11-25-17 @ 3:30pm. this is a TCM . Prescriptions (Any new or edited meds): Saccharomyces Boulardii [Florastor] 250 mg PO BID #60 capsule Complete Home Medications List: Complete Home Medication List: Donepezil HCl [Aricept] 5 mg PO DAILY 06/10/14 Torsemide [Demadex] 100 mg PO DAILY 06/10/14 Travoprost [Travatan Z] 1 drop OP DAILY 06/10/14 LORazepam [Ativan] 0.5 mg PO DAILY PRN 03/28/16 Omeprazole [Prilosec] 20 mg PO DAILY 03/28/16 Potassium Chloride [Klor-Con M10] 10 meq PO DAILY 03/28/16 Probenecid/Colchicine [Probenecid-Colchicine Tabs] 1 tab PO BID 08/10/17 Alendronate Sodium [Fosamax] 70 mg PO .WEEKLY 11/18/17 Cyanocobalamin [Vitamin B-12] 1,000 mcg IJ .MONTHLY 11/18/17 Albuterol Sulfate [Albuterol Sulfate 2.5 MG/3 ML] 2.5 mg IH Q6H PRN 11/19/17 Saccharomyces Boulardii [Florastor] 250 mg PO BID #60 capsule 11/20/17
[2017-11-20] MEDS: ALBUTEROL SULFATE 2.5 MG/0.5 ML VIAL.NEB IH PRN ×2 (10:29→14:29)
[2017-11-20] MEDS ORDERED: FUROSEMIDE 10 MG/ML VIAL IV ONE (13:10)
[2017-11-20] MEDS: HEPARIN SODIUM,PORCINE 5,000 UNITS/ML VIAL SC SCH (13:26)
[2017-11-20] MEDS: ALBUTEROL SULFATE 2.5 MG/0.5 ML VIAL.NEB IH SCH (18:31)
[2017-11-20] MEDS: TRAVOPROST 25 DROP BTL OP SCH (20:39)
[2017-11-21] MEDS: HEPARIN SODIUM,PORCINE 5,000 UNITS/ML VIAL SC SCH (01:05)
[2017-11-21 05:32] LABS: Hematocrit 25.3 % (37.0-47.0); Hemoglobin 8.5 gm/dL (12.5-16.0); Mean Cell Volume 95.8 fl (78-100); Mean Corpuscular Hemoglobin 32.2 pg (27-31); Mean Corpuscular Hgb Conc 33.6 g/dl (32-36); Mean Platelet Volume 9.5 fl (6.0-9.5); Neutrophil # 5.5 K/mm3 (1.3-6.0); Platelet Count 220 K/mm3 (150-450); Red Blood Count 2.64 M/mm3 (4.2-5.4); Red Cell Distribution Width 13.6 % (11.5-14.0); White Blood Count 7.1 K/mm3 (4.0-10.5)
[2017-11-21 05:53] LABS: Albumin * 2.7 gm/dl (3.4-5.0); BUN/Creatinine Ratio 45.2 (9.0-21.6); Bilirubin, Total 0.3 mg/dL (0.0-1.1); Ca. Corrected For Albumin 9.8 mg/dL (8.4-10.2); Calcium * 9.1 mg/dL (7.9-10.9); Carbon Dioxide 28.2 mmol/L (24-32.6); Potassium 4.2 mmol/L (3.4-4.6); Total Protein 5.8 gm/dL (6.2-8.2)
[2017-11-21] MEDS: ALBUTEROL SULFATE 2.5 MG/0.5 ML VIAL.NEB IH SCH ×2 (06:21→10:49)
[2017-11-21] MEDS: POTASSIUM CHLORIDE 10 MEQ TABLET.SA PO SCH (09:44)
[2017-11-21] MEDS: MEGESTROL ACETATE 40 MG TABLET PO SCH (09:44)
[2017-11-21] MEDS: DONEPEZIL HCL 5 MG TABLET PO SCH (09:44)
[2017-11-21] MEDS: SACCHAROMYCES BOULARDII 250 MG CAPSULE PO SCH (09:44)
[2017-11-21 10:57] VITALS: BP 102/56
[2017-11-21] MEDS ORDERED: TORSEMIDE 20 MG TABLET PO SCH (11:00)
--- NOTE | 2017-11-21 11:34 | DS ---
(1) Acute renal failure superimposed on stage 3 chronic kidney disease Problem: Resolved (2) Acute on chronic diastolic CHF (congestive heart failure) Problem: Acute Description of Stay: Krysta is an 87 yo female admitted for acute on chronic kidney disease secondary to likely gastroenteritis/dehydration. She was gently hydrated. Creatinine returned to baseline and she was expected to be discharged, however she began having more shortness of breath and on exam had crackles. She has a history of chronic diastolic chf and despite gently replacing fluids she still became a little hypervolumic. She as given lasix to diurese. She stayed in the hospital an additional day and renal function remained stable and her breathing was improved. She was then discharged to home. Procedures Performed: none Discharge Disposition: Home self care Discharge Location: Home Disposition: Home self-care Condition: Fair Discharge Activity: Activity as tolerated Discharge Diet: Low salt Referrals: Benedict Gomez, [Staff Physician] - (Friday or Friday next week, ok for friday morning if no other available spots) Problem Oriented Discharge Instructions to Patient/Family: Acute Kidney Injury , Viral Gastroenteritis, Adult, [id number] Additional Patient Instructions (free text): -Please make TCM appointment unless senior living discharge. Thank you! Dolores @ [phone]. Follow up with Dr. Gomez on 11-25-17 @ 3:30pm. this is a TCM . Prescriptions (Any new or edited meds): Saccharomyces Boulardii [Florastor] 250 mg PO BID #60 capsule Complete Home Medications List: Complete Home Medication List: Donepezil HCl [Aricept] 5 mg PO DAILY 06/10/14 Torsemide [Demadex] 100 mg PO DAILY 06/10/14 Travoprost [Travatan Z] 1 drop OP DAILY 06/10/14 LORazepam [Ativan] 0.5 mg PO DAILY PRN 03/28/16 Omeprazole [Prilosec] 20 mg PO DAILY 03/28/16 Potassium Chloride [Klor-Con M10] 10 meq PO DAILY 03/28/16 Probenecid/Colchicine [Probenecid-Colchicine Tabs] 1 tab PO BID 08/10/17 Alendronate Sodium [Fosamax] 70 mg PO .WEEKLY 11/18/17 Cyanocobalamin [Vitamin B-12] 1,000 mcg IJ .MONTHLY 11/18/17 Albuterol Sulfate [Albuterol Sulfate 2.5 MG/3 ML] 2.5 mg IH Q6H PRN 11/19/17 Saccharomyces Boulardii [Florastor] 250 mg PO BID #60 capsule 11/20/17
== END 2017-11-21 13:00 | disposition home or self-care (01) | DRG 682 ==
LOC: ER 22:34 → MS 23:04
PROVIDERS: ADMIT Nurse Practitioner; ATTEND Family Medicine
DX: N17.9 Acute kidney failure, unspecified (principal); I50.33 Acute on chronic diastolic (congestive) heart failure; K52.9 Noninfective gastroenteritis and colitis, unspecified; E86.0 Dehydration; E03.9 Hypothyroidism, unspecified; D51.3 Other dietary vitamin B12 deficiency anemia; I12.9 Hypertensive chronic kidney disease with stage 1 through stage 4 chronic kidney disease, or unspecified chronic kidney disease; N18.3 Chronic kidney disease, stage 3 (moderate); Z88.2 Allergy status to sulfonamides